=== PATIENT | female | born 1965 | race Caucasian/White ===

== ENCOUNTER → 2019-12-15 | Outpatient (CLI) | payer BC ==
--- NOTE | 2019-12-15 17:30 | EKG ---
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
== END ==
LOC: RAD 15:51
DX: Z01.812 Encounter for preprocedural laboratory examination (principal)